=== PATIENT | female | born 1980 | race Caucasian/White ===

== ENCOUNTER → 2020-12-17 | Outpatient (CLI) | payer OTHER | LOC: KOH-I 09:44 | DX: R06.02 Shortness of breath (principal) | CPT/HCPCS: 71046 ==

== ENCOUNTER → 2021-08-21 | Outpatient (CLI) | payer OTHER | LOC: KOH-I 14:54 | DX: M79.672 Pain in left foot (principal) | CPT/HCPCS: 73630 ==